=== PATIENT | male | born 1950 | race Caucasian/White ===

== ENCOUNTER 2019-06-23 06:14 | Inpatient (IN) | payer OTHER ==
[2019-06-23] MEDS ORDERED: ALBUMIN HUMAN 5% 250 ML INJ (06:45)
[2019-06-23] MEDS ORDERED: DESFLURANE 15 MIN (06:45)
[2019-06-23] MEDS ORDERED: LIDOCAINE 2% (SDV) 5 ML INJ (06:45)
[2019-06-23] MEDS ORDERED: CEFAZOLIN 1 GM INJ (06:45)
[2019-06-23] MEDS ORDERED: FENTAnyl 50 MCG/ML VIAL (06:45)
[2019-06-23] MEDS ORDERED: ROCURONIUM 50 MG INJ ×2 (06:45→10:16)
[2019-06-23] MEDS ORDERED: PROPOFOL 20 ML (06:45)
[2019-06-23] MEDS ORDERED: SUCCINYLCHOLINE CHLORIDE 100 MG/5 ML SYG IV (06:45)
[2019-06-23] MEDS: CEFAZOLIN 2 GM/50 ML (PMX) 50 ML IVPB (07:00)
[2019-06-23] MEDS ORDERED: LACTATED RINGER'S 1,000 ML IV (07:00)
[2019-06-23] MEDS ORDERED: POLYMYXIN/BACITRACIN 1L IRRIG (07:08)
[2019-06-23] MEDS ORDERED: SOD CHLORIDE 0.9% 1,000 ML IV (07:30)
[2019-06-23] MEDS ORDERED: EPHEDrine 25 MG/5 ML SYG (08:22)
[2019-06-23] MEDS ORDERED: DEXAMETHASONE 4 MG/ML 5 ML INJ (08:30)
[2019-06-23] MEDS ORDERED: HYDROmorphONE 2 MG/ML SYG (08:41)
[2019-06-23] MEDS: HEPARIN 1000 UNITS/ML 10 ML INJ (09:01)
[2019-06-23] MEDS: BUPIVACAINE 0.5%/EPI (SDV) 30 ML INJ (09:03)
[2019-06-23] MEDS: CEFAZOLIN 1 GM INJ (09:03)
[2019-06-23] MEDS: GELATIN SIZE 100 SPONGE (09:05)
[2019-06-23] MEDS: THROMBIN 20,000 UNIT VIAL ×2 (09:05→14:37)
[2019-06-23] MEDS: HEMOSTATIC MATRIX SYG ZFS ×2 (09:06→14:36)
[2019-06-23] MEDS ORDERED: ALBUMIN HUMAN 5% 250 ML (11:32)
[2019-06-23] MEDS ORDERED: THROMBIN(HUM PLAS)/FIBRINOG/CA 5 ML VIAL TOP (13:59)
[2019-06-23] MEDS ORDERED: THROMBIN 5000 UNIT (RECOTHROM) VIAL (14:21)
[2019-06-23] MEDS ORDERED: ONDANSETRON 4 MG INJ IV (14:30)
[2019-06-23] MEDS ORDERED: MEPERIDINE 25 MG INJ IV (14:30)
[2019-06-23] MEDS ORDERED: ALBUTEROL 0.083% (NEB) 2.5 MG/3 ML AMP HHN (14:30)
[2019-06-23] MEDS ORDERED: HYDROmorphONE 1 MG/5 ML IV SYRINGE IV ×3 (14:30)
[2019-06-23] MEDS ORDERED: DIPHENHYDRAMINE 50 MG INJ IV (14:30)
[2019-06-23] MEDS ORDERED: FENTAnyl 50 MCG/ML VIAL IV ×3 (14:30)
[2019-06-23] MEDS ORDERED: NALOXONE (0.4 MG/ML) INJ IV (15:30)
[2019-06-23] MEDS ORDERED: NACL 0.9% 3 ML SYG IV (15:30)
[2019-06-23] MEDS ORDERED: PROCHLORPERAZINE 10 MG TAB PO (15:30)
[2019-06-23] MEDS ORDERED: AL HYDROX/MG HYDROX/SIMETH 30 ML CUP PO (15:30)
[2019-06-23] MEDS: HYDROmorphONE 0.2 MG/ML PCA IV (16:33)
[2019-06-23] MEDS ORDERED: GLUCOSE GEL 15 GRAM TUBE PO ×2 (17:30)
[2019-06-23] MEDS ORDERED: GLUCAGON 1 MG INJ IM (17:30)
[2019-06-23] MEDS ORDERED: DEXTROSE 50% 50 ML SYRINGE IV ×2 (17:30)
[2019-06-23] MEDS: SOD CHLORIDE 0.45% 1,000 ML IV (17:45)
[2019-06-23] MEDS: metFORMIN 500 MG TAB PO (17:47)
[2019-06-23] MEDS: CEFAZOLIN 1 GM/50 ML (PMX) 50 ML IVPB ×2 (17:48→23:23)
[2019-06-23] MEDS: ONDANSETRON 4 MG INJ IV (18:28)
[2019-06-23] MEDS: INSULIN ASPART [NOVOLOG] 3 ML PEN SC ×3 (18:29→22:32)
[2019-06-23] MEDS: METOPROLOL 100 MG TAB PO (22:27)
[2019-06-23] MEDS: ATORVASTATIN 80 MG TAB PO (22:29)
[2019-06-23] MEDS: INSULIN GLARGINE [LANTus] (100 UNITS/ML) SYG SC (22:30)
[2019-06-24] MEDS: SOD CHLORIDE 0.45% 1,000 ML IV ×4 (00:09→17:59)
[2019-06-24] MEDS: ACCU-CHEK XX (02:15)
[2019-06-24 05:12] LABS: HEMATOCRIT 24.8 % (42.0-52.0); HEMOGLOBIN 8.6 g/dl (14.0-18.0)
[2019-06-24] MEDS: CEFAZOLIN 1 GM/50 ML (PMX) 50 ML IVPB ×2 (05:25→11:45)
[2019-06-24 05:31] LABS: ANION GAP 6 (5-13); BLOOD UREA NITROGEN 24 mg/dl (7-20); CALCIUM 7.8 mg/dl (8.4-10.2); CARBON DIOXIDE 26 mmol/L (21-31); CHLORIDE 103 mmol/L (97-110); CREATININE 0.86 mg/dl (0.61-1.24); Estimated GFR > 60 mL/min (>60); GLUCOSE 237 mg/dl (70-220); SODIUM 135 mmol/L (135-144)
[2019-06-24] MEDS: metFORMIN 500 MG TAB PO ×2 (08:30→17:59)
[2019-06-24] MEDS: LINAGLIPTIN 5 MG TABLET PO (08:30)
[2019-06-24] MEDS: DOCUSATE SODIUM 100 MG CAP PO ×2 (08:30→20:25)
[2019-06-24] MEDS: METOPROLOL 100 MG TAB PO ×2 (08:32→20:26)
[2019-06-24] MEDS: EMPAGLIFLOZIN 10 MG TABLET PO (08:33)
[2019-06-24] MEDS: INSULIN ASPART [NOVOLOG] 3 ML PEN SC ×7 (08:35→20:26)
[2019-06-24] MEDS: HYDROCODONE/APAP (5/325) TAB PO ×3 (10:53→18:18)
[2019-06-24] MEDS: ATORVASTATIN 80 MG TAB PO (20:25)
[2019-06-24] MEDS: INSULIN GLARGINE [LANTus] (100 UNITS/ML) SYG SC (20:25)
[2019-06-25] MEDS: HYDROCODONE/APAP (5/325) TAB PO ×3 (00:07→20:16)
[2019-06-25] MEDS: SOD CHLORIDE 0.45% 1,000 ML IV ×3 (00:09→10:51)
[2019-06-25] MEDS: ACCU-CHEK XX (02:00)
[2019-06-25] MEDS: INSULIN ASPART [NOVOLOG] 3 ML PEN SC ×7 (07:50→21:00)
[2019-06-25] MEDS: LINAGLIPTIN 5 MG TABLET PO (08:39)
[2019-06-25] MEDS: metFORMIN 500 MG TAB PO ×2 (08:39→17:58)
[2019-06-25] MEDS: DOCUSATE SODIUM 100 MG CAP PO ×2 (08:39→20:17)
[2019-06-25] MEDS: METOPROLOL 100 MG TAB PO ×2 (08:40→20:16)
[2019-06-25] MEDS: EMPAGLIFLOZIN 10 MG TABLET PO (08:40)
[2019-06-25 09:08] LABS: ADD MAN DIFF? NO
[2019-06-25 09:13] LABS: BASOPHIL # 0.1 10^3/ul (0.0-0.1); BASOPHILS % 0.5 % (0.0-2.0); EOSINOPHILS # 0.6 10^3/ul (0.0-0.5); EOSINOPHILS % 5.4 % (0.0-7.0); HEMOGLOBIN 8.8 g/dl (14.0-18.0); LYMPHOCYTES # 1.4 10^3/ul (0.8-2.9); LYMPHOCYTES % 13.2 % (15.0-51.0); MEAN CORPUSCULAR HEMOGLOBIN 31.1 pg (29.0-33.0); MEAN CORPUSCULAR HGB CONC 33.8 g/dl (32.0-37.0); MEAN CORPUSCULAR VOLUME 91.9 fl (82.0-101.0); MEAN PLATELET VOLUME 9.6 fl (7.4-10.4); MONOCYTE # 0.9 10^3/ul (0.3-0.9); MONOCYTES % 8.3 % (0.0-11.0); NEUTROPHIL # 7.5 10^3/ul (1.6-7.5); NEUTROPHILS % 72.1 % (39.0-77.0); PLATELET COUNT 153 10^3/UL (140-415); RED BLOOD COUNT 2.83 10^6/ul (4.70-6.10); RED CELL DISTRIBUTION WIDTH 13.2 % (11.5-14.5)
[2019-06-25 09:13] LABS: WHITE BLOOD COUNT 10.4 10^3/ul (4.8-10.8)
[2019-06-25 09:40] LABS: ANION GAP 5 (5-13); BLOOD UREA NITROGEN 22 mg/dl (7-20); CALCIUM 7.9 mg/dl (8.4-10.2); CARBON DIOXIDE 27 mmol/L (21-31); CHLORIDE 104 mmol/L (97-110); CREATININE 0.87 mg/dl (0.61-1.24); Estimated GFR > 60 mL/min (>60); GLUCOSE 97 mg/dl (70-220); POTASSIUM 4.1 mmol/L (3.5-5.1); SODIUM 136 mmol/L (135-144)
[2019-06-25] MEDS: DEXAMETHASONE 10 MG/ML 1 ML INJ IV (12:27)
[2019-06-25] MEDS: ATORVASTATIN 80 MG TAB PO (20:16)
[2019-06-25] MEDS: INSULIN GLARGINE [LANTus] (100 UNITS/ML) SYG SC (20:20)
[2019-06-26] MEDS: HYDROCODONE/APAP (5/325) TAB PO ×3 (00:08→21:38)
[2019-06-26] MEDS: ACCU-CHEK XX (02:00)
[2019-06-26] MEDS: INSULIN ASPART [NOVOLOG] 3 ML PEN SC ×7 (08:50→21:00)
[2019-06-26] MEDS: EMPAGLIFLOZIN 10 MG TABLET PO (08:52)
[2019-06-26] MEDS: metFORMIN 500 MG TAB PO ×2 (08:53→17:30)
[2019-06-26] MEDS: LINAGLIPTIN 5 MG TABLET PO (08:53)
[2019-06-26] MEDS: METOPROLOL 100 MG TAB PO ×2 (08:53→20:50)
[2019-06-26] MEDS: DOCUSATE SODIUM 100 MG CAP PO ×2 (08:53→21:00)
[2019-06-26] MEDS: ARTIFICIAL TEARS 15 ML OPH BOTH EYES (17:35)
[2019-06-26] MEDS: ATORVASTATIN 80 MG TAB PO (20:50)
[2019-06-26] MEDS: INSULIN GLARGINE [LANTus] (100 UNITS/ML) SYG SC (21:37)
[2019-06-27] MEDS: HYDROCODONE/APAP (5/325) TAB PO ×2 (01:30→05:39)
[2019-06-27] MEDS: ACCU-CHEK XX (02:00)
[2019-06-27] MEDS: INSULIN ASPART [NOVOLOG] 3 ML PEN SC ×7 (07:50→21:00)
[2019-06-27] MEDS: DOCUSATE SODIUM 100 MG CAP PO ×2 (09:00→21:00)
[2019-06-27] MEDS: LINAGLIPTIN 5 MG TABLET PO (09:41)
[2019-06-27] MEDS: EMPAGLIFLOZIN 10 MG TABLET PO (09:41)
[2019-06-27] MEDS: METOPROLOL 100 MG TAB PO ×2 (09:42→21:18)
[2019-06-27] MEDS: metFORMIN 500 MG TAB PO (09:43)
[2019-06-27] MEDS: LOPERAMIDE 2 MG CAP PO (13:24)
[2019-06-27] MEDS: INSULIN GLARGINE [LANTus] (100 UNITS/ML) SYG SC (20:00)
[2019-06-27] MEDS: metFORMIN (XR) 500 MG TAB PO (21:00)
[2019-06-27] MEDS: ACETAMINOPHEN 325 MG TAB PO (21:17)
[2019-06-27] MEDS: ATORVASTATIN 80 MG TAB PO (21:18)
[2019-06-27] MEDS: GLUCOSE GEL 15 GRAM TUBE BUCCAL (21:26)
[2019-06-27] MEDS: DIPHENOXYLATE/ATROPINE TAB PO (22:00)
[2019-06-28] MEDS: ACCU-CHEK XX (02:26)
[2019-06-28 04:54] LABS: ADD MAN DIFF? NO
[2019-06-28 05:04] LABS: BASOPHIL # 0.1 10^3/ul (0.0-0.1); BASOPHILS % 0.5 % (0.0-2.0); EOSINOPHILS # 0.4 10^3/ul (0.0-0.5); EOSINOPHILS % 3.3 % (0.0-7.0); HEMOGLOBIN 9.7 g/dl (14.0-18.0); LYMPHOCYTES # 1.7 10^3/ul (0.8-2.9); MEAN CORPUSCULAR HEMOGLOBIN 30.5 pg (29.0-33.0); MEAN CORPUSCULAR HGB CONC 34.6 g/dl (32.0-37.0); MEAN CORPUSCULAR VOLUME 88.1 fl (82.0-101.0); MEAN PLATELET VOLUME 8.8 fl (7.4-10.4); MONOCYTES % 9.3 % (0.0-11.0); NEUTROPHIL # 7.5 10^3/ul (1.6-7.5); NEUTROPHILS % 70.4 % (39.0-77.0); PLATELET COUNT 226 10^3/UL (140-415); RED BLOOD COUNT 3.18 10^6/ul (4.70-6.10); RED CELL DISTRIBUTION WIDTH 13.1 % (11.5-14.5)
[2019-06-28 05:04] LABS: WHITE BLOOD COUNT 10.7 10^3/ul (4.8-10.8)
[2019-06-28 05:28] LABS: ALANINE AMINOTRANSFERASE 34 IU/L (13-69); ALBUMIN 3.3 g/dl (3.3-4.9); ALKALINE PHOSPHATASE 84 IU/L (42-121); ANION GAP 7 (5-13); ASPARTATE AMINO TRANSFERASE 37 IU/L (15-46); BILIRUBIN,INDIRECT 0.9 mg/dl (0-1.1); BILIRUBIN,TOTAL 0.9 mg/dl (0.2-1.3); BLOOD UREA NITROGEN 26 mg/dl (7-20); CALCIUM 8.4 mg/dl (8.4-10.2); CARBON DIOXIDE 27 mmol/L (21-31); CHLORIDE 99 mmol/L (97-110); CREATININE 0.86 mg/dl (0.61-1.24); Estimated GFR > 60 mL/min (>60); GLUCOSE 129 mg/dl (70-220); SODIUM 133 mmol/L (135-144); TOTAL PROTEIN 6.3 g/dl (6.1-8.1)
[2019-06-28] MEDS: DOCUSATE SODIUM 100 MG CAP PO ×2 (09:00→21:00)
[2019-06-28] MEDS: metFORMIN (XR) 500 MG TAB PO ×2 (09:00→20:58)
[2019-06-28] MEDS: LINAGLIPTIN 5 MG TABLET PO (09:01)
[2019-06-28] MEDS: METOPROLOL 100 MG TAB PO ×2 (09:01→21:01)
[2019-06-28] MEDS: HYDROCODONE/APAP (5/325) TAB PO (09:02)
[2019-06-28] MEDS: EMPAGLIFLOZIN 10 MG TABLET PO (09:02)
[2019-06-28] MEDS: INSULIN ASPART [NOVOLOG] 3 ML PEN SC ×7 (09:07→21:00)
[2019-06-28] MEDS: ATORVASTATIN 80 MG TAB PO (21:00)
[2019-06-28] MEDS: INSULIN GLARGINE [LANTus] (100 UNITS/ML) SYG SC (21:17)
[2019-06-29] MEDS: HYDROCODONE/APAP (5/325) TAB PO ×3 (01:30→13:30)
[2019-06-29] MEDS: ACCU-CHEK XX (01:37)
[2019-06-29] MEDS: EMPAGLIFLOZIN 10 MG TABLET PO (08:34)
[2019-06-29] MEDS: DOCUSATE SODIUM 100 MG CAP PO (08:34)
[2019-06-29] MEDS: metFORMIN (XR) 500 MG TAB PO (08:35)
[2019-06-29] MEDS: METOPROLOL 100 MG TAB PO (08:35)
[2019-06-29] MEDS: LINAGLIPTIN 5 MG TABLET PO (08:35)
[2019-06-29] MEDS: INSULIN ASPART [NOVOLOG] 3 ML PEN SC ×4 (08:36→12:38)
== END 2019-06-29 14:00 | DRG 455 ==
LOC: REC 06:14 → MS1 17:27
PROVIDERS: Orthopaedic Surgery
PROC: 0SG30A0 Fusion of Lumbosacral Joint with Interbody Fusion Device, Anterior Approach, Anterior Column, Open Approach (ICD-10-PCS; principal; 2019-06-23 07:30)
PROC: 0SG0071 Fusion of Lumbar Vertebral Joint with Autologous Tissue Substitute, Posterior Approach, Posterior Column, Open Approach (ICD-10-PCS; 2019-06-23 07:30)
PROC: 4A11X4G Monitoring of Peripheral Nervous Electrical Activity, Intraoperative, External Approach (ICD-10-PCS; 2019-06-23 07:30)
DX: M43.17 Spondylolisthesis, lumbosacral region (principal); M51.37 Other intervertebral disc degeneration, lumbosacral region; E11.9 Type 2 diabetes mellitus without complications; I10 Essential (primary) hypertension; E78.5 Hyperlipidemia, unspecified; I25.10 Atherosclerotic heart disease of native coronary artery without angina pectoris; Z95.1 Presence of aortocoronary bypass graft; Z79.82 Long term (current) use of aspirin; Z79.4 Long term (current) use of insulin; R15.9 Full incontinence of feces; R19.7 Diarrhea, unspecified
CPT/HCPCS: 72110; 72131; 80048; 80053; 82962; 83036; 85014; 85018; 85025; 86850; 86900; 86901; 86920; 87075; 88304; 97110; 97116; 97162; 97530